=== PATIENT | male | born 1980 | race Caucasian/White ===

== ENCOUNTER 2018-01-29 03:04 | Emergency (ER) | payer OTHER ==
[~2018-01-29] VITALS: Ht 175.3 cm; Wt 72.7 kg
[~2018-01-29 03:04] MED LIST: LAMO150T PO; METO100T44 PO; PRED20TA PO; TRAZ50TA35 PO
[2018-01-29 03:05] VITALS: TEMP 36.7; Ht 175.3 cm; Wt 72.7 kg
[2018-01-29 03:45] LABS: BASO % 0.2 %; BASO ABS # 0.01 K/uL (0-0.2); EOS % 0.5 %; EOS ABS # 0.03 K/uL (0-0.5); HEMATOCRIT 46.9 % (42-52); HEMOGLOBIN 16.6 g/dL (14.0-18.0); IG# 0.02 K/uL (0.00-0.02); LYMPH % 25.6 %; LYMPH ABS # 1.69 K/uL (1.2-3.4); MEAN CORPUSCULAR HEMOGLOBIN 30.1 pg (25-34); MEAN CORPUSCULAR HGB CONC 35.4 g/dl (32-36); MONO % 8.9 %; MONO ABS # 0.59 K/uL (0.11-0.59); NEUT % 64.5 %; NEUT ABS # 4.27 K/uL (1.4-6.5); PLATELET COUNT 234 K/uL (130-400); RED CELL DISTRIBUTION WIDTH CV 13.2 % (11.5-14.5); WHITE BLOOD COUNT 6.61 K/uL (4.8-10.8)
[2018-01-29 04:06] VITALS: O2SAT 95
[2018-01-29 04:10] LABS: ALBUMIN 4.1 gm/dl (3.4-5.0); CALCIUM 9.2 mg/dl (8.5-10.1); CREATININE 1.22 mg/dl (0.60-1.40); POTASSIUM 3.3 mmol/L (3.5-5.1)
[2018-01-29] MEDS ORDERED: POTASSIUM CHLORIDE 10 MEQ TABCR PO STA (04:14)
[2018-01-29 04:19] LABS: PHOSPHORUS 2.5 mg/dl (2.5-4.9); TOTAL PROTEIN 7.9 gm/dl (6.4-8.2)
--- NOTE | 2018-01-29 04:44 | EMERGENCY ROOM VISIT NOTE ---
History First contact with patient: 03:09 Chief Complaint: OTHER COMPLAINT Stated Complaint: LEFT ARM CRAMPING History of Present Illness The patient is a 37 year old male who presents to the Emergency Room with complaints of left arm twitching for the past several hours. Patient states he ran out of his Lamictal last week and has not been able to get in with his neurologist. He takes Lamictal 150 mg twice a day. Patient states the other day he had a seizure and hit his face. Patient states he is not sure why his arm is twitching today. Patient does complain of mild nasal bridge pain and pressure. Patient denies chest pain, dyspnea, headache, dental pain, abdominal pain, neck pain, numbness, tingling, localized weakness. Patient states he is worried he is having a stroke. Patient states he has not had any recent alcohol. He occasionally smokes marijuana. Review of Systems An 10 system review of systems was completed with positives and pertinent negatives listed in the HPI. Past Medical/Surgical History Seizure disorder Social History Smoking Status: Current Every Day Smoker Alcohol Use: occasionally Drug Use: marijuana Occupation Status: employed Current/Historical Medications Scheduled Lamotrigine (Lamictal), 150 MG PO BID Metoprolol Succ (Toprol Xl) (Toprol-Xl ), 100 MG PO DAILY Prednisone (Prednisone), 20 MG PO DAILY/UD Trazodone Hcl (Trazodone), 50 MG PO HS Physical Exam Vital Signs Date Time Temp Pulse Resp B/P (MAP) Pulse Ox O2 Delivery O2 Flow Rate FiO2 01/29/18 04:29 78 01/29/18 04:06 95 Room Air 01/29/18 04:00 73 18 110/86 96 Room Air 01/29/18 03:05 36.7 88 18 121/98 95 Room Air Physical Exam PHYSICAL EXAM: VITALS: Vitals are noted on the nurse's note and reviewed by myself. Vital signs stable. GENERAL: White male with bruising to the nasal bridge, in no acute distress, nondiaphoretic, well-developed well-nourished. SKIN: The skin was without obvious lacerations or abrasions. Capillary reflex less than 2 seconds. HEAD: Normocephalic atraumatic. EARS: External auditory canals clear, tympanic membranes pearly quintana without erythema or effusion bilaterally. No hemotympanums. No cooper sign. No mastoid tenderness. EYES: Pupils equal round and reactive to light and accommodation. Conjunctivae without injection, sclerae without icterus. Extraocular movements intact. NOSE: Patent, turbinates without inflammation or discharge. No sinus tenderness. No septal hematoma or bleeding. FACE: No facial bone tenderness. Full range of motion of the jaw without tenderness. MOUTH: Mucous membranes moist. Pharynx without erythema or exudate. Uvula midline. Airway patent. Tongue does not deviate. NECK: Supple without nuchal rigidity. Cervical spine is nontender. Full range of motion of the neck without tenderness. No JVD. HEART: Regular rate and rhythm without murmurs gallops or rubs. LUNGS: Clear to auscultation bilaterally without wheezes, rales or rhonchi. No dullness to percussion. No retractions or accessory muscle use. No chest wall tenderness. ABDOMEN: Positive bowel sounds x 4. Normal tympanic percussion. Soft, nontender, without masses or organomegaly. No guarding or rebound tenderness. MUSCULOSKELETAL: No tenderness of the thoracic or lumbar spine. Full range of motion without tenderness to palpation in all extremities. Normal gait. Strength 5/5 throughout. NEURO: Patient was alert and oriented to person place and time. Normal sensation to light and sharp touch. No focal neurological deficits. Medical Decision & Procedures Laboratory Results 01/29/18 03:30 Red Blood Count 5.52, Mean Corpuscular Volume 85.0, Mean Corpuscular Hemoglobin 30.1, Mean Corpuscular Hemoglobin Concent 35.4, Mean Platelet Volume 9.0, Neutrophils (%) (Auto) 64.5, Lymphocytes (%) (Auto) 25.6, Monocytes (%) (Auto) 8.9, Eosinophils (%) (Auto) 0.5, Basophils (%) (Auto) 0.2, Neutrophils # (Auto) 4.27, Lymphocytes # (Auto) 1.69, Monocytes # (Auto) 0.59, Eosinophils # (Auto) 0.03, Basophils # (Auto) 0.01 01/29/18 03:30 Test 01/29/18 03:24 01/29/18 03:30 Urine Opiates Screen NEG (NEG) Urine Methadone, Qualitative NEG (NEG) Urine Barbiturates NEG (NEG) Urine Phencyclidine (PCP) Level NEG (NEG) Ur Amphetamine/Methamphetamine NEG (NEG) MDMA (Ecstasy) Screen NEG (NEG) Urine Benzodiazepines Screen NEG (NEG) Urine Cocaine Metabolite NEG (NEG) Urine Marijuana (THC) POS (NEG) White Blood Count 6.61 K/uL (4.8-10.8) Red Blood Count 5.52 M/uL (4.7-6.1) Hemoglobin 16.6 g/dL (14.0-18.0) Hematocrit 46.9 % (42-52) Mean Corpuscular Volume 85.0 fL (80-100) Mean Corpuscular Hemoglobin 30.1 pg (25-34) Mean Corpuscular Hemoglobin Concent 35.4 g/dl (32-36) Platelet Count 234 K/uL (130-400) Mean Platelet Volume 9.0 fL (7.4-10.4) Neutrophils (%) (Auto) 64.5 % Lymphocytes (%) (Auto) 25.6 % Monocytes (%) (Auto) 8.9 % Eosinophils (%) (Auto) 0.5 % Basophils (%) (Auto) 0.2 % Neutrophils # (Auto) 4.27 K/uL (1.4-6.5) Lymphocytes # (Auto) 1.69 K/uL (1.2-3.4) Monocytes # (Auto) 0.59 K/uL (0.11-0.59) Eosinophils # (Auto) 0.03 K/uL (0-0.5) Basophils # (Auto) 0.01 K/uL (0-0.2) RDW Standard Deviation 41.0 fL (36.4-46.3) RDW Coefficient of Variation 13.2 % (11.5-14.5) Immature Granulocyte % (Auto) 0.3 % Immature Granulocyte # (Auto) 0.02 K/uL (0.00-0.02) Anion Gap 10.0 mmol/L (3-11) Est Creatinine Clear Calc Drug Dose 83.7 ml/min Estimated GFR () 87.9 Estimated GFR (Non- 75.8 BUN/Creatinine Ratio 6.4 (10-20) Calcium Level 9.2 mg/dl (8.5-10.1) Phosphorus Level 2.5 mg/dl (2.5-4.9) Magnesium Level 1.9 mg/dl (1.8-2.4) Total Bilirubin 0.8 mg/dl (0.2-1) Direct Bilirubin 0.2 mg/dl (0-0.2) Aspartate Amino Transf (AST/SGOT) 30 U/L (15-37) Alanine Aminotransferase (ALT/SGPT) 34 U/L (12-78) Alkaline Phosphatase 58 U/L (45-117) Total Creatine Kinase 199 U/L (39-308) Total Protein 7.9 gm/dl (6.4-8.2) Albumin 4.1 gm/dl (3.4-5.0) Thyroid Stimulating Hormone (TSH) 3.660 uIu/ml (0.300-4.500) Medications Administered Medications (Trade) Dose Ordered Sig/Breezy Route Start Time Stop Time Status Last Admin Dose Admin Potassium Chloride (Klor-Con M10) 20 meq NOW STAT PO 01/29/18 04:14 01/29/18 04:15 DC 01/29/18 04:25 20 MEQ ED Course Prior records/ancillary studies reviewed. Patient placed in seizure precautions immediately upon arrival. Nursing notes reviewed. Additional history obtained from EMS The patient's history was concerning for left arm twitching who sustained a head injury the other day from possible seizure. Differential diagnosis: Etiologies such as infection, hypoglycemia, electrolyte abnormalities, cardiac sources, intracerebral event, trauma, toxicologic, neurologic, as well as others were entertained. Physical examination: As above. No signs of trauma. ER treatment provided: Lamictal, potassium On reassessment the patient felt better. Diagnostics interpretation by me: The labs revealed positive marijuana. Hypokalemia Lamictal level sent Imaging studies: Head and facial CT negative for acute knee fracture, prior old fracture is visualized by stat radiology The patient has a history of seizures and experienced another episode a few days ago. Patient had facial bruising and discomfort to this region so advanced diagnostics were deemed necessary. By the evaluation outlined above emergent etiologies such as infection, hypoglycemia, electrolyte abnormalities, cardiac sources, intracerebral event, toxicologic, neurologic,as well as others were deemed relatively unlikely. Patient was neurovascularly and neurologically intact. He was given a month's supply for his Lamictal. He is advised to follow-up with his family care doctor or neurologist for this. He is advised to return to the ER mediate for headache, fevers, chest pain, seizures, worsening sinus symptoms or as needed. The patient was counseled not to drive until cleared in follow-up and seizure precautions given. I gave my usual and customary discussion regarding these issues. The patient does not drive. The pt informed about the findings as listed above. All questions were answered and pleased with the treatment. Return instructions were outlined and the patient was discharged in stable condition. Outpatient prescription management: Lamictal Referral: The patient was referred back to their neurologist and or family care for follow -up in 2 to 3 days for a recheck of the current condition. Case reviewed with my attending The chart was completed utilizing [employer] voice recognition software. Grammatical errors, random word insertions, pronoun errors, and incomplete sentences are an occassional consequence of this system due to software limitations, ambient noise, and hardware issues. Any formal questions or concerns about the content, text, or information contained within the body of this dictation should be directly addressed to the physician department assistant for clarification. Medical Decision As above Medication Reconcilliation Current Medication List: was personally reviewed by me Blood Pressure Screening Patient's blood pressure: Normal blood pressure Impression Primary Impression: Hypokalemia Additional Impression: Seizure disorder Departure Information Dispostion Home / Self-Care Condition GOOD Referrals Roberto Prakash M.D. (PCP) Patient Instructions My [facility] Additional Instructions Take your Lamictal as prescribed. No driving. Ibuprofen(Motrin, Advil) may be used for fever or pain. Use 600mg every six hours as needed. Take with food. Avoid using more than 2400mg in a 24 hour period. Do not use 2400mg per day for more than three consecutive days without physician direction. Prolonged inappropriate use can lead to stomach upset or ulcers. (AND/OR) Acetaminophen(Tylenol) may be used for fever or pain. Use 1000mg every six hours as needed. Avoid using more than 3000mg in a 24 hour period. Rest and drink plenty of fluids as tolerated. Continue current medications. Avoid strenuous activities and anything that worsens your pain. Resume normal activities once your symptoms resolve. Return to the ER immediately for worsening or persistent arm twitching, abdominal pain, vomiting, fevers, chest pains, difficulty breathing, worsening of your condition, or as needed. Follow up with your primary physician and/or neurologist in 2-3 days for a recheck of your current condition. Problem Qualifiers
[2018-01-29] MEDS ORDERED: LAMO150T PO (04:45)
[2018-01-29] MEDS ORDERED: EMPTY 8 DRAM VIAL ONE (04:58)
[2018-01-29 05:15] VITALS: BP 112/84; PULSE 66; O2SAT 96
--- NOTE | 2018-01-29 06:37 | DIAGNOSTIC IMAGING REPORT ---
HEAD WITHOUT CONTRAST (CT) CLINICAL HISTORY: 37 years-old Male with BOJORQUEZ/facial injury. Acute headache with facial injury TECHNIQUE: Multiple axial CT images of the head were obtained without contrast. A dose lowering technique was utilized adhering to the principles of ALARA. CT DOSE: 840.34 mGy.cm COMPARISON: CT maxillofacial same day, CT head 11/08/2013. FINDINGS: No acute intracranial hemorrhage, midline shift, intracranial mass, hydrocephalus, territorial ischemia or abnormal extra-axial collection. The calvarium is intact. The paranasal sinuses, mastoid air cells, and middle ear cavities are clear. Likely remote fractures of the nasal bones and posterior left maxillary wall. Soft tissues and orbits are unremarkable. IMPRESSION: No acute intracranial abnormality. The above report was generated using voice recognition software. It may contain grammatical, syntax or spelling errors. Electronically signed by: David Pringle M.D. 01/29/2018 6:36 AM Dictated Date/Time: 01/29/2018 6:34 AM
--- NOTE | 2018-01-29 06:39 | DIAGNOSTIC IMAGING REPORT ---
CT FACIAL BONES-MXILLOFAC WITHOUT CT DOSE: CLINICAL HISTORY: Facial pain status post trauma COMPARISON STUDY: November 08, 2013 TECHNIQUE: Helical images were acquired in the transverse plane. The study was reviewed and analyzed on the independent 3-D workstation. A dose lowering technique was utilized adhering to the principles of ALARA. The pterygoid plates appear intact. The zygomatic arches appear intact. The globes appear intact. There is no evidence of orbital emphysema. The orbital yost and floor appear intact. The mandibular condyles appear intact. There are bilateral nasal bone fractures. These were present on the prior 2012 study but are equivocally more displaced on the current examination. There is a fracture the inferior nasal spine, likely old. There is nasal septal deviation to the right. There is an old fracture involving the lateral wall of the left maxillary sinus. IMPRESSION: 1. Old displaced fracture involving the posterior lateral wall the left maxilla sinus 2. Fracture of the inferior nasal spine, likely old 3. Nasal septal deviation to the right 4. Bilateral nasal bone fractures which were present in 2013. The degree of displacement has increased slightly since the prior study. Electronically signed by: Vic Somers M.D. 01/29/2018 6:38 AM Dictated Date/Time: 01/29/2018 6:34 AM
== END 2018-01-29 05:15 | disposition home or self-care (01) ==
LOC: EDBD 03:04 → C.EDA 03:05
DX: G40.909 Epilepsy, unspecified, not intractable, without status epilepticus (principal); E87.6 Hypokalemia; S00.33XA Contusion of nose, initial encounter; W22.8XXA Striking against or struck by other objects, initial encounter; F12.90 Cannabis use, unspecified, uncomplicated; F17.200 Nicotine dependence, unspecified, uncomplicated